=== PATIENT | female | born 2000 | race Caucasian/White ===

== ENCOUNTER 2023-09-01 07:57 | Outpatient (CLI) | payer OTHER, SELFPAY ==
--- NOTE | 2023-09-01 08:15 | CRLHL7_ITS ---
For Patients: As a result of the Century Cures Act, medical imaging exams and procedure reports are released immediately into your electronic medical record. You may view this report before your referring provider. If you have questions, please contact your health care provider. INDICATION: First trimester scan, establish dates. COMPARISON: None. TECHNIQUE: Real-time melo-scale imaging of the pelvis was performed. FINDINGS: Sonographic imaging demonstrates a single living intrauterine gestation. The embryo demonstrates a regular cardiac rate measuring 183 beats per minute. The embryo`s crown-rump length measurement of 2.7 cm corresponds to a gestational age of 9 weeks 3 days with a sonographic due date of 04/02/2024. There is a normal-appearing yolk sac. There are no gross abnormalities noted within the embryo at this early state of development. The gestational sac has a normal appearance. There is no evidence of a perigestational hemorrhage. The amount of fluid within the sac appears appropriate for gestational age. The cervix is closed. Small intramural fibroid is present anteriorly measuring 8 x 7 x 14 millimeters. The ovaries are of normal size. There are no suspicious fluid collections noted in the cul-de-sac. IMPRESSION: Single living intrauterine with sonographic gestational age 9 weeks 3 days and a sonographic due date of 04/02/2024. Dictated by Kareem Alexandra MD @ 09/02/2023 10:12:01 AM (Electronically Signed)
== END 2023-09-01 07:58 | disposition home or self-care (01) ==
LOC: US 07:58
PROVIDERS: Visit Provider Advanced Practice Midwife
DX: Z34.91 Encounter for supervision of normal pregnancy, unspecified, first trimester (principal); Z3A.09 9 weeks gestation of pregnancy
CPT/HCPCS: 76817; 86592; 86703; 86704; 86706; 86762; 86787; 86803; 86850; 86900; 86901; 87086; 87340

== ENCOUNTER 2023-09-01 08:52 | Outpatient (CLI) | payer OTHER, SELFPAY | END 2023-09-01 08:53 | disposition home or self-care (01) | PROVIDERS: Visit Provider Advanced Practice Midwife | DX: Z34.01 Encounter for supervision of normal first pregnancy, first trimester (principal) | CPT/HCPCS: 86592; 86703; 86704; 86706; 86762; 86787; 86803; 86850; 86900; 86901; 87086; 87340 ==

== ENCOUNTER 2023-11-24 11:59 | Outpatient (CLI) | payer OTHER, SELFPAY ==
--- NOTE | 2023-11-24 12:15 | CRLHL7_ITS ---
For Patients: As a result of the Century Cures Act, medical imaging exams and procedure reports are released immediately into your electronic medical record. You may view this report before your referring provider. If you have questions, please contact your health care provider. INDICATION: Evaluate anatomy. COMPARISON: 09/01/2023 TECHNIQUE: Real time melo scale imaging of the fetus was performed as well as color Doppler analysis of the umbilical vessels. FINDINGS: Sonographic imaging demonstrates a single living intrauterine gestation. Fetus demonstrates a regular cardiac rate of 150 beats per minute. Fetus has a vertex position. The placenta lies fundal without evidence of placenta previa. Edge of the placenta is located 11.9 cm from the internal cervical os. Amniotic fluid volume appears normal. Single deepest vertical pocket: 5.6 cm. The cervix is closed and measures 3.4 cm in length. The composite ultrasound gestational age is calculated at 22 weeks 1 day with an estimated sonographic due date of 03/28/2024. The estimated weight is 471 grams which lies at the 88th %. Anterior fibroid is present measuring 1.8 x 1.1 x 1.8 cm. The following biometric measurements were obtained: Biparietal diameter: 5.3 cm/22 weeks 0 days 82nd% Head circumference: 20.1 cm/22 weeks 1 day 83rd% Abdominal circumference: 16.9 cm/21 weeks 6 days 68th% Femur length: 3.8 cm/22 weeks 1 day 76th% The HC/AC ratio measures: 1.19 range (1.05-1.23) On anatomic survey, there is a normal appearance of the cerebral ventricles, cavum septi pellucidi, cisterna magna and cerebellum. The nose, lips, and facial profile appear normal. The cervical, thoracic and lumbar spine are well visualized and appear normal. There is a normal four-chamber heart view and the left and right ventricular outflow tracts appear normal. The diaphragm and stomach appear normal. The kidneys and bladder also appear normal. There is a normal three-vessel cord and cord insertion site. The four extremities appear normal. IMPRESSION: Sonographic gestational age 22 weeks 1 day and sonographic due date 03/28/2024. Sonographic age is 1 week ahead of the clinical age. Estimated weight 88th percentile. Abdominal circumference 68th percentile. No intrinsic abnormalities noted on anatomic survey. Anterior uterine fibroid measuring 1.8 cm. Dictated by Kareem Alexandra MD @ 11/25/2023 1:50:22 PM (Electronically Signed)
== END 2023-11-24 12:00 | disposition home or self-care (01) ==
LOC: US 11:59
PROVIDERS: Visit Provider Advanced Practice Midwife
DX: Z34.92 Encounter for supervision of normal pregnancy, unspecified, second trimester (principal); Z3A.22 22 weeks gestation of pregnancy
CPT/HCPCS: 76805; 76817

== ENCOUNTER 2024-01-12 10:05 | Outpatient (CLI) | payer OTHER, SELFPAY | END 2024-01-12 10:06 | disposition home or self-care (01) | PROVIDERS: Visit Provider Advanced Practice Midwife | DX: Z34.93 Encounter for supervision of normal pregnancy, unspecified, third trimester (principal) | CPT/HCPCS: 86592 ==

== ENCOUNTER 2024-03-09 13:47 | Outpatient (CLI) | payer OTHER, SELFPAY ==
[2024-03-10 14:26] LABS: Strep B DNA Probe Negative (Negative)
[2024-03-11 07:34] LABS: Strep B Susceptibility Needed? No
== END 2024-03-09 13:48 | disposition home or self-care (01) ==
LOC: NFLDREF 13:47
PROVIDERS: Visit Provider Advanced Practice Midwife
DX: Z34.93 Encounter for supervision of normal pregnancy, unspecified, third trimester (principal); Z3A.36 36 weeks gestation of pregnancy
CPT/HCPCS: 87081; 87653

== ENCOUNTER 2024-03-22 05:23 | Outpatient (CLI) | payer OTHER, SELFPAY ==
[2024-03-22 05:40] VITALS: BP 136/76; PULSE 108; PULSE 114; RESP 16; TEMP 36.5; O2SAT 96
--- NOTE | 2024-03-22 05:52 | PC.NURSE ---
pt reports that she has been having Prabhu knight sine 27-28 weeks and around midnight she felt like her stomach was getting tighter then she had been feeling prior. She started having diarrhea yesterday around 2100 and has had emesis x 4. Contraction pain/discomfort is 4/10. Denies leaking of fluid, discharge and/or bleeding. Denies headache, blurred vision and/or epigastric pain. Monitors applied and questions asked.
[2024-03-22] MEDS: ONDANSETRON 2 MG/ML inj 4 MG IVP (06:54)
[2024-03-22] MEDS: LACTATED RINGERS 500 ML 500 ML IV (06:54)
--- NOTE | 2024-03-22 07:00 | PC.NURSE ---
When offered pt to do oral hydration or Iv fluid she chose oral but changed her mind after drinking water and feeling queasy. IV started and given Zofran IV.
[2024-03-22 08:09] LABS: Appearance Urine Clear (Clear); Bilirubin Urine Negative (Negative); Blood Urine Trace-intact (Negative); Color Urine Yellow (Yellow); Glucose Urine Negative (Negative); Ketones Urine Negative (Negative); Leukocyte Esterase Urine Negative (Negative); Nitrite Urine Negative (Negative); Protein Urine 1+ (Negative); Specific Gravity Urine >= 1.030 (1.000-1.030); Urobilinogen Urine 0.2 (0.2-1.0); pH Urine 5.5 (5.0-8.5)
[2024-03-22 08:27] LABS: Bacteria Urine Few; RBC Urine 0-2 (0-2); Squamous Epithelial Cell Urine Few (None-Few); WBC Urine 0-2 (0-5)
[2024-03-22 08:28] LABS: Mucus Urine Few
--- NOTE | 2024-03-23 10:36 | PC.OBNST ---
NST Note NST Note Start: 03/22/24 05:37 Freq: ONCE Status: Discharge Protocol: Document 03/22/24 08:25 WK (Rec: 03/23/24 10:36 WK Desktop) NST Note 1 Para (# of births) 1 EDC 04/04/24 Gestational Age In Weeks & Days 38 Weeks & 2 Days Patient Presented with Complaint(s) of Contractions/cramping Reactive Yes RN Paul RNC Date 03/22/24 Reactive Yes RN Armaan RNC Date 03/22/24 OB NST charge Yes Complete NST Note via Write Note Yes The provider's electronic signature indicates the NST is reactive/appropriate for gestational age. *Note to provider: If an addendum is required, open the patient's chart and click on the note under the Nurse/Allied Health tab.
== END 2024-03-22 08:24 | disposition home or self-care (01) ==
LOC: OB OUT 05:24 → OB 05:27
PROVIDERS: Midwife; Visit Provider Advanced Practice Midwife
DX: O47.00 False labor before 37 completed weeks of gestation, unspecified trimester (principal)
CPT/HCPCS: 59025; 81001; 81003; 87086; G0463; J2405; J7120

== ENCOUNTER 2024-03-23 04:48 | Inpatient (IN) | payer OTHER, SELFPAY ==
[2024-03-23] VITALS (19 sets, daily range): BP systolic 107–139; BP diastolic 58–87; PULSE 85–111; RESP 16–20; TEMP 36.4–36.9; O2SAT 95–98
--- NOTE | 2024-03-23 04:50 | W.PM.LDBA ---
Subjective History of Present Illness Date Seen: 03/23/24 Narrative: Patient is being admitted to Labor and Delivery for gross rupture of membranes and active labor. She is a 24 year old at 38w1d gestation. Her full history and physical was dictated by Jimmie tSanley CNM on 03/17/2024. Please see this for details. Specific Issues/Plans G1 : Cayden RN in [facility] 03/17/24 by Comfort Stanley CNM # Anterior uterine fibroid measuring 1.8 cm. No follow-up indicated # Anemia 28 weeks: Hgb 10.8, recommend oral iron supplement; no iron in #Oblique lie at 36 wks head in maternal left Imagin09/01/2023: Single living intrauterine with sonographic gestational age 9 weeks 3 days and a sonographic due date of 04/02/2024 11/24/23: Anatomy US:normal findings with fundal placenta, no previa. It is a boy! 88%ile. <2cm possible fibroid noted. Needs pap PP COVID: not vaccinated, declined Flu: Declines TDAP: Declines 01/26/24 RSV: Declines 32wk Mental Health: 02/09/2024 34wk Hgb: 11.9 02/23/2024 OB - Problem Based A/P Additional Plan (1) : Status: Acute Plan ASSESSMENT:?? 24 G P1 at 38 2/7 weeks gestation?? complicated by:??anemia Labor type: Spontaneous, Active labor?? Category 1 FHR pattern.??? Labor complicated by: none?? GBS negative? ?? PLAN:?? 1. Routine intrapartum cares as ordered. Continue with expectant management?? 2. Monitoring per policy, continuous or intermittent?? 3. Planning unmedicated . Desires water . Consent signed. Hep C negative. Candidate for analgesia of choice.??? 4. Patient encouraged to reposition and ambulate to promote physiologic labor and .?? 5. Anticipate ? OB Exam Physical Exam Vital signs: Pulse BP 100 139/87 03/23/24 04:48 03/23/24 04:48 Narrative: Vitals Reviewed Constitutional:? Alert and oriented x3 HEENT:? Normocephalic, atraumatic Neck:? Supple Lungs:? Clear to auscultation bilaterally Heart:? Regular rate and rhythm, no murmur, rub or gallop Abdomen:? Soft, nontender, and gravid. Vertex by Robert's, confirmed with US. Extremities:? No edema or erythema Cervix: 6cmper nursing NST: 148 bpm/moderate variability/no accelerations/early decelerations present /contractions q 2-3 min and strong to palpate
[2024-03-23] MEDS: OXYTOCIN 10 UNIT/ML INJ IM (06:39)
[2024-03-23] MEDS: METHYLERGONOVINE MALEATE 0.2 MG/ML INJ IM (06:43)
--- NOTE | 2024-03-23 07:01 | W.PM.VAGDE_ITS ---
OB Procedure Vag Delivery Mother Details Mother Details: The patient is a 24 year-old, 1, Para 0, admitted on 03/23/24 at 38w2d gestation. Admission Date: 03/23/24 Additional Details Amniotic Membrane Status: SROM Amniotic Membrane Rupture Date: 03/23/24 Amniotic Membrane Rupture Time: 03:00 Amniotic Membrane Fluid Description: Clear Analgesia/Anesthesia Type: None Waterbirth: No Pitcoin: No Intrapartal Events: None Labor Onset: 03:00 Complete: 05:35 Pushin:40 Heart: heart tones during second stage were intermittent and difficult due to maternal positioning and FHR so low in pelvis. When able to auscultate, FHTS heard 140s and 150s. Delivery Details Delivery Date: 03/23/24 Delivery Time: 06:33 Route of delivery: Gender: Male Viability: Alive; Heart Rate Present Position at Delivery: OA (with compound right hand on chest) Delivery Details: Patient was admitted for SROM and active labor and progressed normally. Gross SROM noted at 0300 with clear fluid. Patient was complete at 0535 and pushing at 0540. Baby was (small and large) for approx 30 min. Position changes were utilized to assist more effective pushing. Anticipation for shoulder dystocia was prepared. of a viable male at 0633 in OA. Vertex delivered OA. No nuchal cord or shoulder. Body delivered easily and immediately with the of the head and without incident. He was born with his right hand on his chest. passed to mothers abdomen minimal breathing effort, good tone. After 30 sec, despite mouth and nose suctioning and stimulation, tone began to decrease with still intermittent respiratory effort. This prompted clamping and cutting of the Cord. Baby arrived at the warmer at 1 min 20 sec after . was 4 at one minute. 5 min was 6, 10 min was 5. Shortly after the baby was taken to warmer, a vaginal gush of bleeding was noted from [place]. Fundal pres sure applied to abdomen and pitocin consented to give IM. Pt then encouraged to push her placenta out. It delivered easily with maternal efforts. Intact placenta with a 3 vessel cord delivered spontaneously at 0639. Fundus firm. Bilateral vaginal lacerations very shallow a approx 1 cm in length just inside introitus. QBL 440. Oozing noted a few minutes later that prompted a request for Methergine and a vaginal/cervical sweep with approx another 100 cc in clots. Fundus again firm after sweep and no further oozing noted. Mother stable; mother plans to breastfeed. weight pending.?Baby was being attended by peds team for grunting and poor color, though O2 sats were good. 1 Minute Interval Total Score: 4 5 Minute Interval Total Score: 6 10 Minute Interval Total Score: 5 Additional Details Shoulder Dystocia: No Placenta Delivery Time: 06:39 Placental Delivery Description: Spontaneous Procedure Done: Global Blood Loss: 440 Laceration: Vaginal - 1st Degree (bilteral) Blood Loss Measurement Type: QBL Bakri Used: No Sponge/Need Count Correct: Yes Cord Vessel Description: 3 Vessels Event Summary Status: Mother was stable after delivery. At approx 1.5 hours after , baby was skin to skin with mom. Disposition: floor
[2024-03-23] MEDS: IBUPROFEN 600 MG TABLET PO ×2 (07:23→17:59)
[2024-03-24 05:07] VITALS: BP 105/67; PULSE 80; RESP 16; O2SAT 96
[2024-03-24 07:15] LABS: Hemoglobin* 12.8 gm/dL (12.0-16.0)
--- NOTE | 2024-03-24 07:28 | PM.OBDSVD1 ---
DS: Providers Provider Date Seen: 03/24/24 Date of admission: 03/23/24 04:48 Primary care physician: Not a Local Provider Admitting Clinician: Josselyn Sarabia CNM Attending Physician on discharge: Yolanda Cai CNM DS: Diagnosis Discharge Diagnosis (1) care and examination immediately after delivery: Status: Acute (2) Lactating mother: Status: Acute Exam Narrative: Exam Narrative: GENERAL APPEARANCE:? normal affect, alert, no distress MOOD:? appropriate CHEST:? clear to auscultation HEART:? regular rate and rhythm ABDOMEN:? soft, non-tender the uterine fundus is At Umbilicus, Midline and is appropriate for the stage of recovery. PERINEUM:? mild edema of the perineum, there is a vaginal Laceration,?that is healing well. EXTREMITIES:? normal and no edema Const: Vital Signs, click to edit/add: Vital Signs - 24 hr 03/23/24 07:31 03/23/24 07:46 03/23/24 08:01 Temperature Pulse Rate 85 98 100 Pulse Rate [Pulse Oximeter] Respiratory Rate Blood Pressure 126/72 124/69 124/71 Blood Pressure [Le ft Arm] Pulse Oximetry 95 Oxygen Delivery Me thod 03/23/24 08:02 03/23/24 08:16 03/23/24 08:31 Temperature Pulse Rate 100 99 Pulse Rate [Pulse Oximeter] Respiratory Rate Blood Pressure 123/70 125/60 Blood Pressure [Le ft Arm] Pulse Oximetry 96 Oxygen Delivery Me thod 03/23/24 08:46 03/23/24 12:05 03/23/24 16:19 Temperature 97.6 F 97.5 F L Pulse Rate 90 Pulse Rate [Pulse Oximeter] 87 88 Respiratory Rate 16 16 Blood Pressure 120/58 L Blood Pressure [Le ft Arm] 117/72 115/76 Pulse Oximetry 97 98 Oxygen Delivery Me thod Room Air Room Air 03/23/24 19:55 03/23/24 23:37 03/24/24 05:07 Temperature 98.5 F 97.6 F Pulse Rate Pulse Rate [Pulse Oximeter] 92 85 80 Respiratory Rate 18 20 16 Blood Pressure Blood Pressure [Le ft Arm] 107/71 122/74 105/67 Pulse Oximetry 95 96 96 Oxygen Delivery Me thod Room Air Room Air Room Air OB - DS: Summary Hospital Course Hospital Course: The patient is a 24 year old G [] P [] at [] weeks gestation that was admitted to the Center on 03/23/24 for []. She had an [uncomplicated/complicated] [vaginal/] delivery. She delivered a viable [male/female] infant. She is [breast/bottle] feeding. the patient has done well. Infant Gender: Male Time Spent with Patient Time attestation: Total time spent providing and/or coordinating discharge services: Discharge Plan Discharge Disposition: Home, Self-Care Date of Admission: 03/23/24 04:48 Attending Provider on Discharge: Yolanda Cai Primary Care Provider: Provider,Not a Local Condition: Stable Anticipated Discharge Date/Time: 03/24/24 12:00 Discharge Medications: New docusate sodium 100 mg Capsule 100 mg PO DAILY Qty: 90 0RF ibuprofen 600 mg Tablet 600 mg PO Q6H PRN (Reason: Pain) Qty: 60 0RF acetaminophen 500 mg Tablet 1,000 mg PO Q6H PRN (Reason: Pain) Qty: 0 0RF Continued One Daily [id number] mg-mcg-mg combo pack 1 pkg PO DAILY ondansetron HCl 4 mg tablet 4 mg PO Q8H PRN Discharge Orders: Discharge Order (Routine); Ordered 03/24/24 Ordered By: Yolanda Cai Patient Education: OB Over the Counter Medication Information, OB Vaginal/Breast Feeding Additional Instructions: Discharge instructions were reviewed with the patient including signs and symptoms of infection and home going medications Nothing vaginally for 6 weeks: no tampons or intercourse Off Work or School for 6 weeks 2-week visit: discuss infant feeding concerns, review control options and screen for anxiety/depression. 6-week visit for an annual exam. consultation services are available to all mothers and babies for the first year after delivery.? To make an appointment, please call [phone]. Activity Level: Activity as Tolerated Discharge Diet: Regular Follow Up Appointments: [facility] [Provider Group] Forms: Method CRM Info Instructions
[2024-03-24 08:21] VITALS: BP 106/69; PULSE 88; RESP 17; TEMP 36.4; O2SAT 96
[2024-03-24] MEDS: DOCUSATE SODIUM 100 MG CAPSULE PO (08:46)
== END 2024-03-24 13:50 | disposition home or self-care (01) | DRG 807 ==
LOC: OB OUT 04:49 → OB 04:49
PROVIDERS: Admitting Provider Midwife; Visit Provider Midwife
DX: O99.02 Anemia complicating childbirth (principal); Z37.0 Single live birth; D64.9 Anemia, unspecified; O70.0 First degree perineal laceration during delivery; O34.13 Maternal care for benign tumor of corpus uteri, third trimester; D25.9 Leiomyoma of uterus, unspecified; Z3A.38 38 weeks gestation of pregnancy
CPT/HCPCS: 36415; 85018; 86592; A9270; J2210; J2590

== ENCOUNTER 2024-03-30 10:57 | Outpatient (CLI) | payer OTHER, SELFPAY ==
--- NOTE | 2024-03-30 16:31 | W.PM.LAC.MC ---
Consult Note - Mom Date of Visit Date of visit: 03/30/24 Reason for consultation: Assistance Needed Visit Code: Visit Patient's Information Phone number: [phone] : 1 Para: 1 Allergies No Known Drug Allergies Allergy (Verified 03/17/24 08:33) Mother's Medical History: Medical History (Updated 03/25/24 @ 00:01 by Background Mis) No significant past medical history Delivery Information Delivery type: Vaginal Gestational Age: 38+2 Gestational Weight For Age: AGA Weight: 3.44 kg Discharge Weight: 3.304 kg Percentage weight loss: 4 Baby's Information Baby's Age at Visit: 7 days Baby's Provider or Clinic: [facility] Jaundice: Yes Past Experience Past Experience: No Current Frequency of Day Feedings: every 2.5-3 hours Frequency of Night Feedings: same Both Breasts: No Suck: hasn't latched since left hospital Latch: refuses Supplementing EBM Supplement: Yes (taking 2 oz every 2.5-3 hours) Formula Supplement: No Baby Elimination Number of Wet Diapers a Day: ea feeding Number of BM a Day: 2-3/day; yellow and seedy Breast/Nipple Condition Breast Information: Breasts are symmetrical with rounded lower quadrants, intramammary distance is less than 1.5 inches. No erythema. Nipples are supple, everted prior to feeding. Breast Shape: Round Engorgement: No Maternal Nipple Condition - Left: Common Nipple Maternal Nipple Condition - Right: Common Nipple Sore Nipples: No Baby Assessment Skin: Normal and Yellow (to shoulders) Tongue/frenulum: Normal/elastic Palate: Average Lips: Relaxed and Symmetrical Jaw Alignment: Symmetrical Mucosa: [place], moist Onsite Observation Pre-Feed weight: 3.366 kg Post-Feed weight: 3.408 kg Milk Transferred (mL): 42 Position: Football Attachment/latch-on achieved: With difficulty and With nipple shield Suck pattern: Suck burst and normal rest Swallow: Audible, consistent Pre-Nursing Left Nipple: Within Normal Limits Pre-Nursing Right Nipple: Within Normal Limits Post-Nursing Left Nipple: Within Normal Limits Post-Nursing Right Nipple: Within Normal Limits Assessments/Interventions Assessments/Interventions: Mom attempted to latch baby to the breast and he almost did without the shield; sucked more than he has at home so this is encouraging. Continue to try and latch without shield as mom feels able; 1-2 times a day if not going well. Once he is able to latch without the shield, be more persistent in trying Discussed breast sandwich/asymmetric latch technique and his need to have mouth yawn wide to get on deep enough and angle toward roof of mouth so he feels mom's nipple/breast for his target Skin to skin time to keep him close to the breast and early feeding cues to maximize success Answered questions about pumping and bottling for mom and dad Education provided: Early feeding cues to maximize timing of latching, Asymmetric latch technique for wide/deep latch to increase milk, Transfer for baby and increase comfort for mom, Supply/demand nature of milk supply, Need for frequent stimulation/milk removal, Alternative feeding methods (SNS, cup, finger feeding, bottling) and Use of nipple shield (mom had with her, with shield on, baby able to latch and stay on for feeding for 10 min ea side) Handouts Provided: Pumping and milk storage guidelines Follow-Up Suggested follow up: Appointment as needed Time Spent Time spent with patient (min): 90 Meds Home Medications and Allergies Home Medications ?Medication ?Instructions ?Recorded ?Confirmed ?Type ondansetron HCl 4 mg tablet 4 mg PO Q8H PRN 09/01/23 03/23/24 History vits 75-iron 28 mg-folic 1 pkg PO DAILY 09/01/23 03/23/24 History acid 800 mcg-omega3 440 mg oral pack (One Daily ) Allergies Allergy/AdvReac Type Severity Reaction Status Date / Time No Known Drug Allergies Allergy Verified 03/17/24 08:33
== END 2024-03-30 10:58 | disposition home or self-care (01) ==
PROVIDERS: Visit Provider Advanced Practice Midwife
DX: Z39.1 Encounter for care and examination of lactating mother (principal)
CPT/HCPCS: G0463

== ENCOUNTER 2024-05-02 13:03 | Outpatient (CLI) | payer OTHER, SELFPAY ==
[2024-05-04 11:12] LABS: HPV Source Cervical; HPV, High Risk by TMA Not Detected
== END 2024-05-02 13:04 | disposition home or self-care (01) ==
PROVIDERS: Visit Provider Midwife
DX: Z12.4 Encounter for screening for malignant neoplasm of cervix (principal); Z11.51 Encounter for screening for human papillomavirus (HPV)
CPT/HCPCS: 87624; 87625; 88141; 88142